=== PATIENT | male | born 1955 | race Caucasian/White ===

== ENCOUNTER → 2020-09-20 | Outpatient (CLI) | payer MEDICARE ==
[~2020-09-20] MED LIST: PROHANCE 279.3MG/ML 15ML VIAL As Ordered ONE
--- NOTE | 2020-09-21 10:19 | REP ---
INDICATION: ELEVATED PSA. COMPARISON: None. TECHNIQUE: Using a phased array surface coil, small ivqpe-oi-stkd imaging was acquired using T2 weighted scans in the axial, coronal, and sagittal imaging planes. Small sixvd-yf-ruhz diffusion-weighted sequences are acquired. Small uence-dk-mreq axial T1 weighted scans are acquired dynamically before and after the intravenous administration of 14 mL of ProHance. Imaging is reviewed using the [employer] computer-aided detection system. FINDINGS: The prostate measures 4.6 x 3.6 x 4.3 cm for total volume of 37.1 cc. Mixed nodular areas of signal are seen within the central zone and transitional zone. No pelvic adenopathy. There is no free fluid. There is sigmoid diverticulosis incidentally noted. No abnormal bone marrow signal is seen. 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 The seminal vesicles are symmetrical. Four regions of interest are identified in the prostate for potential MR ultrasound fusion biopsy. First in the left transitional zone extending from the base to the apex there is a geographic ill-defined area which is predominantly low in signal on T2 weighted images, with low signal also seen on diffusion-weighted imaging. There is predominantly type 3 enhancement within this region. It measures 2.5 x 1.3 x 2.8 cm for total volume of 4.57 cc. Overall level of suspicion is 3/5 with clinically significant cancer equivocal. Second in the right transitional zone, extending from the base to the apex, there is an oval area of similar appearing predominantly low signal on T2 and diffusion-weighted imaging, with predominantly type 3 internal enhancement. It measures 1.6 x 0.9 x 2.4 cm for total volume of 2.67 cc. Overall level of suspicion is 3/5 with clinically significant cancer equivocal. In the right mid to apical peripheral zone there is band like T2 signal hypointensity which is also somewhat low in signal on diffusion-weighted images. There are is predominately type 3 internal enhancement. The area measures 1.8 x 0.4 x 2.1 cm for total volume of 1.14 cc. Overall level of suspicion is 2/5 with clinically significant cancer on likely to be present. This may represent an area of prostatitis. Finally in the left apical posterior peripheral zone there is a similar appearing bandlike area of T2 signal hypointensity, also hypointense on diffusion-weighted images, with predominantly type 3 internal enhancement. The area measures 1.5 x 0.7 x 1.0 cm for total volume of 0.81 cc. Overall level of suspicion is 2/5 with clinically significant cancer on likely to be present. This may represent an area of prostatitis. IMPRESSION: Four regions of interest identified in the prostate for potential MR ultrasound fusion biopsy as discussed above. <Electronically signed by Jean Macias > 09/21/20 [id number]
== END ==
LOC: M RAD 15:03
PROVIDERS: ATTEND Physician Assistant
DX: R97.20 Elevated prostate specific antigen [PSA] (principal)
CPT/HCPCS: 72197; A9576

== ENCOUNTER → 2022-04-11 | Outpatient (REF) | payer MEDICARE | LOC: M SFHCDERM 13:26 | PROVIDERS: ATTEND Nurse Practitioner Family | DX: L57.0 Actinic keratosis (principal) ==